=== PATIENT | female | born 1935 | race Caucasian/White ===

== ENCOUNTER 2021-12-26 08:53 | Inpatient (IN) | payer MEDICARE, OTHER ==
[2021-12-26] MEDS ORDERED: ONDANSETRON 4 MG/2 ML VIAL IVP STA (09:04)
--- NOTE | 2021-12-26 09:13 | ED ---
Fall HPI - General Stated Complaint: Fall, hip pain Time Seen by Provider: 12/26/21 08:54 Source: patient, EMS, RN notes reviewed - History of Present Illness Initial Comments: Patient is a 86 year old female, visiting family from [place], presenting to the ER via EMS with a chief complaint of left leg pain. She states she fell while getting into her hotel room shower this morning. Denies LOC or other injuries. She denies numbness or tingling in left leg. Denies blood thinners. She states while still her pain is a 6/10 and while moving it is a 10/10. Per EMS, she was down for about an hour before they were able to get her out of the shower. She received 10mg of morphine prior to arrival. Patient reports nausea with medication. EMS also started her on 2L oxygen due to her saturation being in the low 90s. Patient is not normally on oxygen at home. She denies headache, chest pain, shortness of breath, or abdominal pain. Patient refuses additional pain medications at this time. - Related Data Allergies Allergy/AdvReac Type Severity Reaction Status Date / Time No Known Allergies Allergy Verified 12/26/21 09:11 Review of Systems ROS Statement: Those systems with pertinent positive or pertinent negative responses have been documented in the HPI. ROS Other: All systems not noted in ROS Statement are negative. General Exam General appearance: alert, in no apparent distress Head exam: Present: atraumatic, normocephalic, normal inspection Eye exam: Present: normal appearance, PERRL, EOMI. Absent: scleral icterus, conjunctival injection, periorbital swelling Neck exam: Present: normal inspection. Absent: tenderness, meningismus, lymphadenopathy Respiratory exam: Present: normal lung sounds bilaterally. Absent: respiratory distress, wheezes, rales, rhonchi, stridor Cardiovascular Exam: Present: regular rate, normal rhythm, normal heart sounds. Absent: systolic murmur, diastolic murmur, rubs, gallop, clicks GI/Abdominal exam: Present: soft, normal bowel sounds. Absent: distended, tenderness, guarding, rebound, rigid Extremities exam: Present: full ROM, tenderness (left thigh and hip ), other (left leg externally rotated; positive left leg roll ) Back exam: Present: normal inspection Neurological exam: Present: alert, oriented X3, CN II-XII intact Psychiatric exam: Present: normal affect, normal mood Skin exam: Present: warm, dry, intact, normal color. Absent: rash Course Vital Signs 12/26/21 08:59 Temperature 97.4 F L Pulse Rate 65 Respiratory 18 Rate Blood Pressure 198/110 O2 Sat by Pulse 92 L Oximetry Medical Decision Making - Medical Decision Making X-ray shows evidence of left hip fracture. Patient be admitted for surgery. Disposition Clinical Impression: Fall, Hip fracture, left Disposition: ADMITTED IP TO THIS HOSP Referrals: None,Stated [Primary Care Provider] - 1-2 days Time of Disposition: 09:40
[2021-12-26] MEDS ORDERED: NALOXONE 0.4 MG/ML 1 ML VIAL IV PRN ×2 (10:04→21:12)
[2021-12-26] MEDS ORDERED: HYDROmorphone 0.5 MG/0.5 ML SYRINGE IVP PRN ×4 (10:04→21:12)
[2021-12-26] MEDS ORDERED: SODIUM CHLORIDE 0.9% 1,000 ML IV SCH (10:15)
[2021-12-26] MEDS ORDERED: METOCLOPRAMIDE 5 MG/ML 2 ML VIAL IVP STA (10:27)
--- NOTE | 2021-12-26 10:28 | XR ---
EXAMINATION TYPE: XR Hip LT and AP Pelvis DATE OF EXAM: 12/26/2021 COMPARISON: None HISTORY: Trauma, fall TECHNIQUE: 2 view left hip supplemented with AP pelvis FINDINGS: There is a left femoral neck fracture. Femoral head articulates with the acetabulum. No add itional fractures are evident. Symphysis pubis and sacroiliac joints are normal. IMPRESSION: 1. Fracture of the distal left femoral neck.
--- NOTE | 2021-12-26 10:28 | XR ---
EXAMINATION TYPE: XR chest 1V portable DATE OF EXAM: 12/26/2021 COMPARISON: None INDICATION: Presurgical clearance TECHNIQUE: Single frontal view of the chest is obtained. FINDINGS: The heart size is normal. The pulmonary vasculature is somewhat prominent upper lung moyer. The lungs are clear. There is elevation of the right diaphragm. IMPRESSION: 1. Some mild volume overload may be present. 2. An acute pulmonary process is not otherwise radiographically apparent.
--- NOTE | 2021-12-26 10:29 | P.HPOR ---
History of Present Illness H&P Date: 12/26/21 Chief Complaint: Left femoral neck fracture Patient is 86-year-old female who presented to [facility] emergency room today for evaluation after falling and injuring her left femur. Patient has been in town visiting some family, she is resting in a hotel with her daughter. She attempted to use the restroom this morning when she fell and landed on her left knee and hip. She's been having discomfort in both areas, the hip pain is way worse. She was unable to weight-bear brought to the hospital for further evaluation. On arrival to the hospital, imaging and lab tests were done. Images demonstrated a displaced left femoral neck fracture. I was contacted by the emergency room staff and was able to evaluate the patient at bedside. Patient was resting in her hospital bed, the daughter was present at bedside. She complains of most of the pain in her left hip region. She's having mild knee pain at this time. She has a history of knee replacement that was done many years ago on the left side. She denies any previous surgery to her left hip. She has no other orthopedic complaints this time. She denies any numbness or tingling in the bilateral upper or lower extremities. She denies any loss of bowel or bladder function. She denies any headaches, lightheadedness, chest pain or shortness of breath. Review of Systems Constitutional: Reports as per HPI Past Medical History Past Medical History: Chest Pain / Angina, Diabetes Mellitus, Hypertension, Myocardial Infarction (SD) History of Any Multi-Drug Resistant Organisms: None Reported Past Surgical History: Breast Surgery, Heart Catheterization With Stent, Hysterectomy Additional Past Surgical History / Comment(s): bladder Past Psychological History: No Psychological Hx Reported Smoking Status: Never smoker Past Alcohol Use History: None Reported Past Drug Use History: None Reported Medications and Allergies Allergies Allergy/AdvReac Type Severity Reaction Status Date / Time No Known Allergies Allergy Verified 12/26/21 09:11 Physical Examination Left lower extremity: No obvious open lesions or sores visualized throughout the extremity. No significant soft tissue swelling or areas of erythema. Well-healed incision over the anterior aspect of the knee, there is no effusion Tenderness with palpation of the proximal femur as noted, logroll maneuver reproduces pain. She's has mild tenderness with palpation around the knee. She is nontender to the lower leg, foot or ankle Range of motion is limited to the hip, she is unable to straight leg raise. Range of motion of the knee is also difficult due to pain. Plantar flexion, dorsiflexion, EHL, FHL are intact. Compartments of the upper leg and lower leg. Anterior and posterior are soft and compressible. Calf is soft, no tenderness with palpation. Plantar flexion, dorsiflexion, EHL, FHL are intact Sensory exam to light touch throughout the extremity is intact Dorsalis pedis pulses 2+ Results - Diagnostic results Hip x-ray: report reviewed, image reviewed (X-rays reviewed of the left hip and pelvis. Images demonstrate a left femoral neck fracture. No other acute osseous abnormality is appreciated.) Assessment and Plan Assessment: Displaced left femoral neck fracture Left knee pain, history of left total knee arthroplasty Status post fall from standing Other medical comorbidities Plan: I was able to discuss the case, this including no physical exam findings and imaging studies maintaining Dr. Diana. Patient was admitted under orthopedic care with plan for surgical intervention. We have discussed the surgical options at bedside. We would like to proceed with a direct anterior total hip arthroplasty for the fracture. Patient and family are in good understanding like to proceed. Risks and benefits of the procedure discussed with patient, this including but not excluded blood loss, infection, neurovascular injury, development of blood clots, and adequate healing of bone, possible need for further surgery, etc. They're in good understanding would like to proceed. Obtain consent. Planning for surgery on 12/27/2021 Nothing by mouth diet at this time Gay catheter initiation Nonweightbearing left lower extremity X-rays of the left femur and knee have been ordered for further evaluation Medical recommendations DVT prophylaxis, patient will be started on subcu medication after surgery Further recommendations to follow. Time with Patient: Less than 30
--- NOTE | 2021-12-26 11:26 | XR ---
EXAMINATION TYPE: XR knee limited LT DATE OF EXAM: 12/26/2021 COMPARISON: NONE HISTORY: Pain TECHNIQUE: Two views are submitted. FINDINGS: Postsurgical changes are seen. Faint soft tissue calcifications are noted. Diffuse osteopenia.. Osse ous structures are intact. No acute fracture seen. IMPRESSION: 1. No acute fracture or dislocation.
--- NOTE | 2021-12-26 11:27 | XR ---
EXAMINATION TYPE: XR femur LT DATE OF EXAM: 12/26/2021 COMPARISON: NONE HISTORY: Pain TECHNIQUE: 2 views FINDINGS: There is a displaced fracture of the left femoral neck. Arthropathy of the hip joint and po stsurgical change involving the knee joint. Mild diffuse osteopenia. IMPRESSION: Displaced left femoral neck fracture.
[2021-12-26] MEDS ORDERED: hydrALAZINE HCL 20 MG/ML 1 ML VIAL IVP STA (11:30)
[2021-12-26 11:32] LABS: Basophils % (A) 0 %; Eosinophils # (A) 0.1 k/uL (0-0.7); Eosinophils % (A) 1 %; HCT 39.6 % (34.0-46.0); HGB 13.1 gm/dL (11.4-16.0); Hypochromasia Slight; Lymphocytes # (A) 0.9 k/uL (1.0-4.8); Lymphocytes % (A) 9 %; MCH 29.8 pg (25.0-35.0); MCHC 33.2 g/dL (31.0-37.0); Mean Platelet Volume 10.5; Monocytes # (A) 0.3 k/uL (0-1.0); Monocytes % (A) 3 %; Neutrophils # (A) 8.3 k/uL (1.3-7.7); Neutrophils % (A) 86 %; Platelet Count 140 k/uL (150-450); RDW 14.7 % (11.5-15.5); WBC 9.7 k/uL (3.8-10.6)
[2021-12-26 11:40] LABS: ALT 23 U/L (4-34); AST 32 U/L (14-36); African American GFR (CKD) >90 (>60 ml/min/1.73 sqM); Albumin 4.1 g/dL (3.5-5.0); Alkaline Phosphatase 92 U/L (38-126); Anion Gap 8 mmol/L; Blood Urea Nitrogen 16 mg/dL (7-17); Calcium 8.3 mg/dL (8.4-10.2); Carbon Dioxide 25 mmol/L (22-30); Chloride 105 mmol/L (98-107); Glucose 152 mg/dL (74-99); Non-African American GFR(CKD) 78 (>60 ml/min/1.73 sqM); Potassium 3.4 mmol/L (3.5-5.1); Sodium 138 mmol/L (137-145); Total Protein 6.6 g/dL (6.3-8.2)
[2021-12-26] MEDS ORDERED: ISOSORBIDE DINITRATE 10 MG TAB PO SCH (11:45)
[2021-12-26] MEDS ORDERED: TELMISARTAN 80 MG PO SCH (11:45)
[2021-12-26] MEDS ORDERED: METOPROLOL TARTRATE 25 MG TAB PO SCH (11:45)
[2021-12-26 11:48] LABS: Partial Thromboplastin Time 22.3 sec (22.0-30.0); Prothrombin Time 10.6 sec (9.0-12.0)
[2021-12-26 11:56] LABS: Appearance,Urine Clear (Clear); Bacteria,Urine Few /hpf; Bilirubin,Urine Negative (Negative); Blood,Urine Negative (Negative); Color,Urine Light Yellow; Glucose,Urine (UA) Negative (Negative); Ketones,Urine Negative (Negative); Leukocyte Esterase,Urine Negative (Negative); Mucus,Urine Rare /hpf; Nitrite,Urine Positive (Negative); Protein,Urine 2+ (Negative); RBC,Urine 1 /hpf (0-5); Specific Gravity,Urine 1.009 (1.001-1.035); Squamous Epithelial Cell,Urine <1 /hpf (0-4); Urobilinogen,Urine <2.0 mg/dL (<2.0); WBC,Urine 3 /hpf (0-5)
[2021-12-26] MEDS: hydrALAZINE HCL 25 MG TAB PO SCH ×2 (13:34→17:05)
[2021-12-26] MEDS ORDERED: DEXTROSE 50% SYRINGE 50 ML IVP PRN ×2 (13:41)
[2021-12-26] MEDS ORDERED: POTASSIUM CHLORIDE ER 20 MEQ TAB.ER PO STA (13:43)
--- NOTE | 2021-12-26 13:46 | P.CONS ---
History of Present Illness - Reason for Consult Consult date: 12/26/21 - History of Present Illness This 86-year-old female with PMH of hypertension, hypothyroidism, diabetes mellitus, CAD post stent in 2011 and 2015 he presents the ED after mechanical fall. Patient is somewhat drowsy likely related to pain medication and majority of history is obtained from family. Patient was with her family visiting from [place] when she fell forward prior to using the toilet. Family and patient denies any syncopal episode or head trauma. She did feel lightheaded and nauseous after she stood up from her fall but her daughter believes that is likely pain related. She started experiencing left hip pain, 10/10 in severity which prompted them to call EMS. Patient currently denies any hip pain when s taying still. She denies any lower extremity edema, nausea or vomiting, chest pain, shortness of breath, palpitations, changes in urination or bowel habits. In the ED, she was noted to have a BP of 218/115. She required 2 L nasal cannula to maintain O2 saturation in the mid 90s. Vital signs otherwise stable. CBC showed platelet count 140. Coagulation panel was negative. CMP showed potassium 3.4, glucose of 153, calcium 8.3. Urinalysis was 2+ protein, positive nitrate. X-ray showed fracture of the distal left femoral neck. Chest x-ray showed mild volume overload. EKG showed sinus rhythm with incomplete right bundle-branch block. Orthopedic surgery was consulted in the ED and family was agreeable for surgery. [facility] was consulted for medical management for this patient. Pertinent positives and negatives as discussed in HPI, a complete review of systems was performed and all other systems are negative. General: non toxic, drowsy, appears at stated age Derm: warm, dry Head: atraumatic, normocephalic, symmetric Eyes: EOMI, no lid lag, anicteric sclera Mouth: no lip lesion, mucus membranes moist Cardiovascular: S1S2 reg, faint systolic murmur Lungs: Decreased BS bilateral, no rhonchi, no rales , no accessory muscle use Ext: no gross muscle atrophy, no edema, no contractures Neuro: no focal neuro deficits Psych: Alert, oriented, appropriate affect #Hypertensive urgency #Hypokalemia #Thrombocytopenia #Abnormal UA #CAD post stent in 2011 and 2016 #Diabetes mellitus #Hypothyroidism Patient presents after mechanical fall. X-ray showed fracture of the distal left femoral neck. Patient and family agreeable for surgery. Orthopedic surgery has been consulted and plans for possible surgery today. Patient has a history of CAD post stent placement in 2011 and 2015. She is currently on aspirin, metoprolol and Lipitor. Family denies any exertional chest pain or shortness of breath. Patient has a RCRI of 1 indicating a 6% 30-day risk of , ID or cardiac arrest. Patient has a Brown score of 0.2% risk of ID or cardiac arrest, intraoperatively or up to 30 days postop. She will need better blood pressure control prior to surgery. She did take her morning dose of Imdur, metoprolol and telmisartan. She was given 10 mg of IV hydralazine in the ED. Her blood pressure is currently 180s over 100s. She'll be started on hydralazine 25 mg by mouth 4 times a day. Vital signs will be monitored and medication adjusted if necessary. Potassium will be replaced and rechecked tomorrow. Unknown etiology for thrombocytopenia. Monitor with heparin products. Patient does not have UTI symptoms. No need for antibiotics for now. Continue to monitor. She'll be started on low-dose insulin sliding scale along with Accu-Cheks 4 times a day and hypoglycemic precautions. She'll be started on Synthroid. DVT prophylaxis: SCDs Discussed with: Patient, daughter Anticipated discharge: Depending on clinical course Anticipated discharge place: Home vs [facility] A total of 30 minutes was spent on the care of this complex patient more than 50% of the time was spent in counseling and care coordination. Thank you for this consultation. Please call [facility] with additional questions or concerns. Past Medical History Past Medical History: Chest Pain / Angina, Diabetes Mellitus, Hypertension, Myocardial Infarction (ID) History of Any Multi-Drug Resistant Organisms: None Reported Past Surgical History: Breast Surgery, Heart Catheterization With Stent, Hysterectomy Additional Past Surgical History / Comment(s): bladder Past Psychological History: No Psychological Hx Reported Smoking Status: Never smoker Past Alcohol Use History: None Reported Past Drug Use History: None Reported Medications and Allergies Home Medications Medication Instructions Recorded Confirmed Type Aspirin EC [Ecotrin Low Dose] 81 mg PO DAILY 12/26/21 12/26/21 History Atorvastatin Calcium [Lipitor] 40 mg PO DAILY 12/26/21 12/26/21 History Cholecalciferol [Vitamin D3 (25 50 mcg PO DAILY 12/26/21 12/26/21 History Mcg = 1000 Iu)] Cranberry Fruit Extract [Cranberry] 500 mg PO DAILY 12/26/21 12/26/21 History Isosorbide Dinitrate 30 mg PO DAILY 12/26/21 12/26/21 History Levothyroxine Sodium [Synthroid] 75 mcg PO DAILY 12/26/21 12/26/21 History Magnesium 250 mg PO DAILY 12/26/21 12/26/21 History Metoprolol Tartrate [Lopressor] 25 mg PO BID 12/26/21 12/26/21 History Multivitamins, Thera [Multivitamin 1 tab PO DAILY 12/26/21 12/26/21 History (formulary)] Nitroglycerin Sl Tabs [Nitrostat] 0.4 mg SUBLINGUAL Q5M PRN 12/26/21 12/26/21 History Telmisartan [Micardis] 80 mg PO DAILY 12/26/21 12/26/21 History metFORMIN HCL [Glucophage] 500 mg PO BID 12/26/21 12/26/21 History sitaGLIPtin [Januvia] 50 mg PO DAILY 12/26/21 12/26/21 History Allergies Allergy/AdvReac Type Severity Reaction Status Date / Time No Known Allergies Allergy Verified 12/26/21 09:11 Physical Exam Vitals: Vital Signs Temp Pulse Resp BP Pulse Ox 12/26/21 13:30 87 18 172/96 94 L 12/26/21 13:00 88 18 182/102 94 L 12/26/21 12:32 86 18 187/101 95 12/26/21 12:17 85 18 179/99 94 L 12/26/21 12:00 81 18 191/102 95 12/26/21 11:00 81 18 198/109 95 12/26/21 10:10 78 18 218/115 94 L 12/26/21 08:59 97.4 F L 65 18 198/110 92 L Intake and Output 12/25/21 12/26/21 12/26/21 22:59 06:59 14:59 Other: Weight 75.296 kg Results CBC & Chem 7: 12/26/21 11:21 12/26/21 11:21 Labs: Abnormal Lab Results - Last 24 Hours (Table) 12/26/21 12/26/21 12/26/21 Range/Units 11:21 11:21 11:45 Plt Count 140 L (150-450) k/uL Neutrophils # 8.3 H (1.3-7.7) k/uL Lymphocytes # 0.9 L (1.0-4.8) k/uL Potassium 3.4 L (3.5-5.1) mmol/L Glucose 152 H (74-99) mg/dL Calcium 8.3 L (8.4-10.2) mg/dL Urine Protein 2+ H (Negative) Urine Nitrite Positive H (Negative) Urine Bacteria Few H (None) /hpf Urine Mucus Rare H (None) /hpf
[2021-12-26 16:34] LABS: Glucose,Whole Blood 123 mg/dL (70-110)
[2021-12-26] MEDS: INSULIN ASPART (NovoLOG) 100 UNIT/ML VIAL SQ SCH ×2 (16:46→20:04)
[2021-12-26] MEDS ORDERED: hydrALAZINE HCL 25 MG TAB PO PRN (17:25)
[2021-12-26] MEDS ORDERED: TRANEXAMIC ACID IN NACL,ISO-OS 1,000 MG in SALINE 1 100ML.BAG IVPB PRN (19:00)
[2021-12-26] MEDS ORDERED: TRANEXAMIC ACID IN NACL,ISO-OS 1,000 MG/100 ML BAG IRRIGATION ONE (19:12)
[2021-12-26] MEDS ORDERED: KETAMINE 10 MG/ML 20 ML VIAL ONE (19:51)
[2021-12-26] MEDS ORDERED: PHENYLEPHRINE-0.9% NACL SYG 1,000 MCG/10 ML SYRINGE ONE (19:51)
[2021-12-26] MEDS ORDERED: SODIUM CHLORIDE 0.9% 1,000 ML IV ONE (19:51)
[2021-12-26] MEDS ORDERED: PROPOFOL 10 MG/ML 20 ML VIAL IV ONE (19:51)
[2021-12-26] MEDS ORDERED: MIDAZOLAM 2 MG/2 ML VIAL ONE (19:51)
[2021-12-26] MEDS ORDERED: TRANEXAMIC ACID IN NACL,ISO-OS 1,000 MG/100 ML BAG ONE (19:51)
[2021-12-26] MEDS ORDERED: LIDOCAINE 2% INJ 20 MG/ML (2 ML VIAL) ONE (19:51)
[2021-12-26] MEDS ORDERED: SODIUM CHLORIDE 0.9% 100 ML with ceFAZolin 2,000 MG IV ONE ×2 (20:10)
[2021-12-26] MEDS ORDERED: ceFAZolin 1,000 MG in SODIUM CHLORIDE 0.9% 1,000 ML IRRIGATION ONE (20:15)
[2021-12-26] MEDS ORDERED: LACTATED RINGERS 1,000 ML IV ONE (20:54)
[2021-12-26] MEDS ORDERED: ONDANSETRON 4 MG/2 ML VIAL IVP PRN (21:12)
--- NOTE | 2021-12-26 21:12 | P.OP ---
Date of Procedure: 12/26/21 Preoperative Diagnosis: Displaced left hip femoral neck fracture Postoperative Diagnosis: Displaced left hip femoral neck fracture Procedure(s) Performed: Direct anterior left total hip arthroplasty Implants: 1. Tien [place] 125 standard collar size 12 press-fit femoral stem 2. [place] pinnacle 50 mm press-fit acetabular shell 3. Tien pinnacle neutral polyethylene acetabular liner 32 mm ID 50 mm OD 4. Biolox delta ceramic femoral head +1 32 mm Anesthesia: spinal Surgeon: George Diana Credit Operations Specialist #1: Pedro Silva Estimated Blood Loss (ml): 120 Pathology: other (Femoral head) Condition: stable Disposition: PACU Indications for Procedure: 86-year-old patient was seen with a displaced left hip femoral neck fracture. I discussed direct anterior left total hip arthroplasty. Patient and her family were agreeable, consent was obtained. Operative Findings: See description of procedure Description of Procedure: The patient was taken to the operative suite. Patient underwent a spinal anesthetic by the department of anesthesia. Patient was then transferred to the [place] table. Patient was given preoperative IV antibiotics and TXA. Both lower extremities were placed in standard leg spars. The hip was then prepped and draped in the normal sterile orthopedic fashion. A standard anterior incision was made beginning 3 cm lateral and 1 cm distal to the ASIS extending 10 cm. Dissection was then carried down through the subcutaneous soft tissues down to the fascia overlying the tensor fascia jhonatan. An incision was now made through the fascia. Careful dissection was taken down exposing the tensor fascia jhonatan muscle. A Cobra retractor was now placed along the medial femoral neck and a second one along the lateral femoral neck. The venous circumflex vessels were now identified, cauterized and clipped. We identified the anterior hip capsule. An incision was made through the hip capsule along the lateral border. I encountered hemarthrosis. I performed a partial anterior capsulectomy. Retractors were now placed around the femoral neck itself. I noted a displaced comminuted femoral neck fracture. A femoral neck cut was now made with a s agittal saw. It was completed with an osteotome at the lateral neck area. The femoral head was now removed without difficulty. The extremity was now rotated to 60 of external rotation. It was locked in position. Residual labrum was now debrided out. Serial reaming was performed of the acetabulum while Aravind RUDOLPH assisted holding an anterior retractor for exposure. Once we reached the appropriate size and a trial was position and fit nicely. The appropriate size was now chosen opened and made available. It was introduced into the acetabulum without difficulty. The C-arm/fluoroscopy was now brought into the operative field. We made sure we had a true AP pelvic view. We now under direct C-arm/fluoroscopy introduced into the acetabular component with appropriate version and inclination. I held the cup in appropriate position well Aravind RUDOLPH used a mallet to seat the acetabular component. I noted the component now to be well seated and stable. Acetabular cup introduce her was removed. The C-arm was pulled back. An appropriate liner was introduced and clicked into position. It was felt to be stable. At this point retractors were removed. The extremity was now placed into 140 external rotation with no traction. The leg was now dropped to the ground and adducted. Appropriate retractors were now positioned along the proximal femur. We also placed our fem oral look into position. Additional capsular releasing was performed to gain access to the proximal femur. We now used a box osteotome. A canal finder was now utilized. Serial broaching was now performed with the assistance of Aravind RUDOLPH tapping the broaches down with a mallet while held the broach in appropriate rotation and position. This was done until we reached the appropriate size with good overall rotational stability. Appropriate calcar planing was performed. A trial head/neck was placed into position. The hip was now reduced. The C-arm/fluoroscopy was brought back into the operative field. I obtained and AP pelvis was demonstrated adequate leg length alignment. The trial components appeared adequately sized and positioned. The C- arm/fluoroscopy was pulled back. Retractors were repositioned and the hip was dislocated. The leg was again taken down to the ground and adducted. Appropriate retractors were repositioned as well as the femoral hook. All trial components were removed. The femoral implant was opened along with the femoral head. The femoral implant was introduced on the appropriate handle into our pre-broached area. I held the component position well Aravind RUDOLPH used a mallet to seat the femoral component. The femoral component was now noted to be well seated and stable.. The femoral head was introduced with good positioning and fixation noted. Retractors were now removed. The hip was now reduced. There appeared be good positioning of the hip confirmed on intraoperative fluoroscopy. Spot films were obtained to document this. A second gram of TXA was given. Bipolar cautery had been utilized intermittently through the procedure for hemostasis. The wound was irrigated copiously with pulse lavage mechanical irrigation. The fascia was repaired with Vicryl suture. The subcutaneous soft tissues were repaired in layers with Vicryl suture. The skin was approximated with pernio/Dermabond. Sterile dressings were applied. Patient was then awakened, transferred to a bed and taken to recovery in stable condition. Aravind RUDOLPH assisted with the complex procedure.
--- NOTE | 2021-12-26 22:09 | XR ---
EXAMINATION TYPE: XR Hip Limited LT DATE OF EXAM: 12/26/2021 COMPARISON: NONE HISTORY: Hip surgery TECHNIQUE: 2 views FINDINGS: There is left hip prosthesis. Components appear in anatomic position. 9 seconds of fluorosc opy time was recorded. IMPRESSION: No complicating process seen.
[2021-12-26] MEDS: SODIUM CHLORIDE 0.9% 1,000 ML IV SCH (22:15)
[2021-12-26] MEDS: ONDANSETRON 4 MG/2 ML VIAL IVP PRN (23:39)
[2021-12-26] MEDS: METOPROLOL TARTRATE 25 MG TAB PO SCH (23:40)
[2021-12-27] MEDS: traMADol 50 MG TAB PO PRN (05:17)
[2021-12-27 06:07] LABS: Glucose,Whole Blood 133 mg/dL (70-110)
[2021-12-27] MEDS: INSULIN ASPART (NovoLOG) 100 UNIT/ML VIAL SQ SCH ×4 (06:16→22:24)
[2021-12-27] MEDS: LEVOTHYROXINE 75 MCG TAB PO SCH (06:19)
--- NOTE | 2021-12-27 08:01 | FL ---
EXAMINATION TYPE: FL guidance operating room DATE OF EXAM: 12/26/2021 HISTORY: Fluoroscopy time 9 seconds of fluoroscopy provided. IMPRESSION: 1. Fluoroscopy time.
[2021-12-27 08:23] LABS: African American GFR (CKD) 73 (>60 ml/min/1.73 sqM); Anion Gap 6 mmol/L; Blood Urea Nitrogen 18 mg/dL (7-17); Calcium 7.3 mg/dL (8.4-10.2); Carbon Dioxide 21 mmol/L (22-30); Chloride 109 mmol/L (98-107); Glucose 135 mg/dL (74-99); Non-African American GFR(CKD) 63 (>60 ml/min/1.73 sqM); Potassium 3.9 mmol/L (3.5-5.1); Sodium 136 mmol/L (137-145)
[2021-12-27 08:41] LABS: Basophils # (A) 0.01 X 10*3/uL (0.00-0.10); Basophils % (A) 0.1 %; Eosinophils # (A) 0 X 10*3/uL (0.04-0.35); Eosinophils % (A) 0 %; HCT 33.9 % (37.2-46.3); HGB 10.7 g/dL (12.0-15.0); Immature Grans, Automated 0.5 %; Lymphocytes # (A) 0.79 X 10*3/uL (0.90-5.00); Lymphocytes % (A) 9.4 %; MCH 28.5 pg (27.0-32.0); MCHC 31.6 g/dL (32.0-37.0); MCV 90.2 fL (80.0-97.0); Mean Platelet Volume 12.9 fL (9.5-12.2); Monocytes # (A) 0.52 X 10*3/uL (0.20-1.00); Monocytes % (A) 6.2 %; NRBC Per 100 WBC 0 /100 WBCS (0.0-0.0); Neutrophils # (A) 7.02 X 10*3/uL (1.80-7.70); Neutrophils % (A) 83.8 %; Platelet Count 150 X 10*3/uL (140-440); RBC 3.76 X 10*6/uL (4.10-5.20); RDW 15.8 % (11.5-14.5); WBC 8.38 X 10*3/uL (4.50-10.00)
[2021-12-27] MEDS: SODIUM CHLORIDE 0.9% 1,000 ML IV SCH (09:26)
[2021-12-27] MEDS: LOSARTAN 50 MG TAB PO SCH (09:27)
[2021-12-27] MEDS: ATORVASTATIN 40 MG TAB PO SCH (09:27)
[2021-12-27] MEDS: FAMOTIDINE 20 MG TAB PO SCH (09:27)
[2021-12-27] MEDS: ENOXAPARIN 40 MG/0.4 ML SYRINGE SQ SCH (09:27)
[2021-12-27] MEDS: METOPROLOL TARTRATE 25 MG TAB PO SCH ×2 (09:27→23:10)
[2021-12-27] MEDS: ISOSORBIDE MONONITRATE ER 30 MG TAB.ER.24H PO SCH (09:27)
--- NOTE | 2021-12-27 09:32 | P.PN ---
Subjective Progress Note Date: 12/27/21 Principal diagnosis: Status post left total hip arthroplasty, status post fall with femoral neck fracture Patient was evaluated at bedside, she is resting comfortably. Her pain is controlled, she states it is feeling better since surgery. She has not been ambulating at this time. Urinary catheter remains in place. She denies any headaches, lightheadedness, chest pain shortness of breath Objective - Vital Signs Vital signs: Vital Signs Temp 97.5 F L 12/27/21 00:15 Pulse 82 12/27/21 00:15 Resp 18 12/27/21 00:15 BP 145/81 12/27/21 00:15 Pulse Ox 95 12/27/21 08:43 FiO2 Intake & Output 12/26/21 12/27/21 12/27/21 18:59 06:59 18:59 Intake Total 600 1701 Output Total 1070 Balance 600 631 Weight 75.296 kg Intake: IV 1301 Intake, IV Titration 600 400 Amount Sodium Chloride 0.9% 1, 400 000 ml @ 50 mls/hr IV . Q20H [facility] Rx#:[id number] Sodium Chloride 0.9% 1, 600 000 ml @ 75 mls/hr IV . [id number] [facility] Rx#:[id number] Output: Urine 950 Estimated Blood Loss 120 - Exam Left lower extremity: Incision is clean, dry, and intact. The foam dressing is in good condition. There is minimal soft tissue swelling and ecchymosis surrounding the medial and lateral aspects of the incision. Calf is soft, no tenderness with palpation. Plantar flexion, dorsiflexion, EHL, FHL are intact. Sensory exam to light touch throughout the extremity is intact, dorsal pedis pulses 2+. - Labs CBC & Chem 7: 12/27/21 05:52 12/27/21 05:52 Labs: Abnormal Lab Results - Last 24 Hours (Table) 12/26/21 12/26/21 12/26/21 Range/Units 11:21 11: 11:45 RBC (4.10-5.20) X 10*6/uL Hgb (12.0-15.0) g/dL Hct (37.2-46.3) % MCHC (32.0-37.0) g/dL RDW (11.5-14.5) % Plt Count 140 L (150-450) k/uL MPV (9.5-12.2) fL Neutrophils # 8.3 H (1.3-7.7) k/uL Lymphocytes # 0.9 L (1.0-4.8) k/uL Eosinophils # (0.04-0.35) X 10*3/uL Sodium (137-145) mmol/L Potassium 3.4 L (3.5-5.1) mmol/L Chloride (98-107) mmol/L Carbon Dioxide (22-30) mmol/L BUN (7-17) mg/dL Glucose 152 H (74-99) mg/dL POC Glucose (mg/dL) (70-110) mg/dL Calcium 8.3 L (8.4-10.2) mg/dL Urine Protein 2+ H (Negative) Urine Nitrite Positive H (Negative) Urine Bacteria Few H (None) /hpf Urine Mucus Rare H (None) /hpf 12/26/21 12/27/21 12/27/21 Range/Units 16:31 05:52 05:52 RBC 3.76 L (4.10-5.20) X 10*6/uL Hgb 10.7 L (12.0-15.0) g/dL Hct 33.9 L (37.2-46.3) % MCHC 31.6 L (32.0-37.0) g/dL RDW 15.8 H (11.5-14.5) % Plt Count (150-450) k/uL MPV 12.9 H (9.5-12.2) fL Neutrophils # (1.3-7.7) k/uL Lymphocytes # 0.79 L (1.0-4.8) k/uL Eosinophils # 0 L (0.04-0.35) X 10*3/uL Sodium 136 L (137-145) mmol/L Potassium (3.5-5.1) mmol/L Chloride 109 H (98-107) mmol/L Carbon Dioxide 21 L (22-30) mmol/L BUN 18 H (7-17) mg/dL Glucose 135 H (74-99) mg/dL POC Glucose (mg/dL) 123 H (70-110) mg/dL Calcium 7.3 L (8.4-10.2) mg/dL Urine Protein (Negative) Urine Nitrite (Negative) Urine Bacteria (None) /hpf Urine Mucus (None) /hpf 12/27/21 Range/Units 06:05 RBC (4.10-5.20) X 10*6/uL Hgb (12.0-15.0) g/dL Hct (37.2-46.3) % MCHC (32.0-37.0) g/dL RDW (11.5-14.5) % Plt Count (150-450) k/uL MPV (9.5-12.2) fL Neutrophils # (1.3-7.7) k/uL Lymphocytes # (1.0-4.8) k/uL Eosinophils # (0.04-0.35) X 10*3/uL Sodium (137-145) mmol/L Potassium (3.5-5.1) mmol/L Chloride (98-107) mmol/L Carbon Dioxide (22-30) mmol/L BUN (7-17) mg/dL Glucose (74-99) mg/dL POC Glucose (mg/dL) 133 H (70-110) mg/dL Calcium (8.4-10.2) mg/dL Urine Protein (Negative) Urine Nitrite (Negative) Urine Bacteria (None) /hpf Urine Mucus (None) /hpf Assessment and Plan Assessment: Postoperative day #1 status post direct anterior left total hip arthroplasty Acute blood loss anemia, expected surgical outcome History of recent fall with left femoral neck fracture Other medical comorbidities Plan: Pain control, continue current medications, avoid high dose oral pain medication due to nausea and vomiting DVT prophylaxis, continue subcu medication during hospital stay Encourage incentive spirometer Ferrous sulfate 325 mg twice a day for anemia PT/OT evaluation, weight-bear as tolerated with walker Medical recommendations Discharge planning: Patient will likely require subacute rehab, we'll discuss his case management possibilities for discharge. Time with Patient: Less than 30
[2021-12-27 11:07] LABS: Glucose,Whole Blood 153 mg/dL (70-110)
--- NOTE | 2021-12-27 15:04 | P.PN ---
Subjective Progress Note Date: 12/27/21 This 86-year-old female with PMH of hypertension, hypothyroidism, diabetes mellitus, CAD post stent in 2011 and 2016 he presents the ED after mechanical fall. In the ED, she was noted to have a BP of 218/115. She required 2 L nasal cannula to maintain O2 saturation in the mid 90s. Vital signs otherwise stable. CBC showed platelet count 140. Coagulation panel was negative. CMP showed potassium 3.4, glucose of 153, calcium 8.3. Urinalysis was 2+ protein, positive nitrate. X-ray showed fracture of the distal left femoral neck. Chest x-ray showed mild volume overload. EKG showed sinus rhythm with incomplete right bundle-branch block. Orthopedic surgery was consulted in the ED and family was agreeable for surgery. [facility] was consulted for medical management for this patient. Patient was seen and examined. She is POD 1 direct anterior L total hip arthropasty. Patient reports well controlled pain in her left hip. She is seen sitting in a chair. She would like to go back to bed. Mentation significantly improved. BP 145/81. General: non toxic, drowsy, appears at stated age Derm: warm, dry Head: atraumatic, normocephalic, symmetric Eyes: EOMI, no lid lag, anicteric sclera Mouth: no lip lesion, mucus membranes moist Cardiovascular: S1S2 reg, faint systolic murmur Lungs: Decreased BS bilateral, no rhonchi, no rales , no accessory muscle use Ext: no gross muscle atrophy, no edema, no contractures Neuro: no focal neuro deficits Psych: Alert, oriented, appropriate affect #Acute blood loss anemia #Hypertensive urgency #Thrombocytopenia #Abnormal UA #CAD post stent in 2011 and 2016 #Diabetes mellitus #Hypothyroidism Hg 10.7. Expected result of surgery. No active signs of bleeding. Continue to monitor. Orthopedic surgery on board. She is POD 1 direct anterior L total hip arthropasty Patient has a history of CAD post stent placement in 2011 and 2016. She is cur rently on aspirin, metoprolol and Lipitor. Family denies any exertional chest pain or shortness of breath. Patient has a RCRI of 1 indicating a 6% 30-day risk of , [place] or cardiac arrest. Patient has a Brown score of 0.2% risk of [place] or cardiac arrest, intraoperatively or up to 30 days postop. Her NSQIP risk is 4.9% of serious complication (3.3% average), 0.5% of cardiac complication (0.2% average), 0.2% (0.1% average), 38.2% need for SNF (8.4% average). Continue Imdur, metoprolol and telmisartan. Continue hydralazine 25 mg by mouth 4 times a day PRN. Vital signs will be monitored and medication adjusted if necessary. Unknown etiology for thrombocytopenia. Monitor with heparin products. Patient does not have UTI symptoms. No need for antibiotics for now. Continue to monitor. She'll be started on low-dose insulin sliding scale along with Accu-Cheks 4 times a day and hypoglycemic precautions. She'll be started on Synthroid. Plans for SNF. Case management on board. Medically stable. Objective - Vital Signs Vital signs: Vital Signs Temp 97.5 F L 12/27/21 00:15 Pulse 82 12/27/21 00:15 Resp 18 12/27/21 00:15 BP 145/81 12/27/21 00:15 Pulse Ox 95 12/27/21 08:43 FiO2 Intake & Output 12/26/21 12/27/21 12/27/21 18:59 06:59 18:59 Intake Total 600 1701 400 Output Total 1070 Balance 600 631 400 Weight 75.296 kg Intake: IV 1301 Intake, IV Titration 600 400 400 Amount Sodium Chloride 0.9% 1, 400 400 000 ml @ 50 mls/hr IV . Q20H [facility] Rx#:[id number] Sodium Chloride 0.9% 1, 600 000 ml @ 75 mls/hr IV . [id number] [facility] Rx#:[id number] Output: Urine 950 Estimated Blood Loss 120 Other: Voiding Method Indwelling Catheter - Labs CBC & Chem 7: 12/27/21 05:52 12/27/21 05:52 Labs: Abnormal Lab Results - Last 24 Hours (Table) 12/26/21 12/27/21 12/27/21 Range/Units 16:31 05:52 05:52 RBC 3.76 L (4.10-5.20) X 10*6/uL Hgb 10.7 L (12.0-15.0) g/dL Hct 33.9 L (37.2-46.3) % MCHC 31.6 L (32.0-37.0) g/dL RDW 15.8 H (11.5-14.5) % MPV 12.9 H (9.5-12.2) fL Lymphocytes # 0.79 L (0.90-5.00) X 10*3/uL Eosinophils # 0 L (0.04-0.35) X 10*3/uL Sodium 136 L (137-145) mmol/L Chloride 109 H (98-107) mmol/L Carbon Dioxide 21 L (22-30) mmol/L BUN 18 H (7-17) mg/dL Glucose 135 H (74-99) mg/dL POC Glucose (mg/dL) 123 H (70-110) mg/dL Calcium 7.3 L (8.4-10.2) mg/dL 12/27/21 12/27/21 Range/Units 06:05 11:06 RBC (4.10-5.20) X 10*6/uL Hgb (12.0-15.0) g/dL Hct (37.2-46.3) % MCHC (32.0-37.0) g/dL RDW (11.5-14.5) % MPV (9.5-12.2) fL Lymphocytes # (0.90-5.00) X 10*3/uL Eosinophils # (0.04-0.35) X 10*3/uL Sodium (137-145) mmol/L Chloride (98-107) mmol/L Carbon Dioxide (22-30) mmol/L BUN (7-17) mg/dL Glucose (74-99) mg/dL POC Glucose (mg/dL) 133 H 153 H (70-110) mg/dL Calcium (8.4-10.2) mg/dL
[2021-12-27 16:32] LABS: Glucose,Whole Blood 158 mg/dL (70-110)
[2021-12-27] MEDS: FERROUS SULFATE 325 MG TAB PO SCH (17:36)
[2021-12-27 20:30] LABS: Glucose,Whole Blood 146 mg/dL (70-110)
[2021-12-27] MEDS: SENNOSIDES-DOCUSATE SODIUM 1 EACH TAB PO SCH (23:09)
[2021-12-28 06:26] LABS: Glucose,Whole Blood 119 mg/dL (70-110)
[2021-12-28] MEDS: INSULIN ASPART (NovoLOG) 100 UNIT/ML VIAL SQ SCH ×4 (06:28→20:42)
[2021-12-28 07:31] LABS: African American GFR (CKD) 56 (>60 ml/min/1.73 sqM); Anion Gap 4 mmol/L; Blood Urea Nitrogen 24 mg/dL (7-17); Calcium 7.3 mg/dL (8.4-10.2); Carbon Dioxide 22 mmol/L (22-30); Chloride 109 mmol/L (98-107); Glucose 107 mg/dL (74-99); Non-African American GFR(CKD) 49 (>60 ml/min/1.73 sqM); Sodium 135 mmol/L (137-145)
[2021-12-28 07:34] LABS: Potassium 4.3 mmol/L (3.5-5.1)
[2021-12-28 08:00] LABS: HCT 30.4 % (34.0-46.0); MCH 29.4 pg (25.0-35.0); MCHC 33.1 g/dL (31.0-37.0); MCV 88.7 fL (80.0-100.0); Mean Platelet Volume 13.3; RBC 3.43 m/uL (3.80-5.40); RDW 15.1 % (11.5-15.5); WBC 7.4 k/uL (3.8-10.6)
[2021-12-28] MEDS: FAMOTIDINE 20 MG TAB PO SCH (08:01)
[2021-12-28] MEDS: ATORVASTATIN 40 MG TAB PO SCH (08:01)
[2021-12-28 08:02] LABS: HGB 10.1 gm/dL (11.4-16.0)
[2021-12-28] MEDS: FERROUS SULFATE 325 MG TAB PO SCH ×2 (08:02→17:06)
[2021-12-28] MEDS: ISOSORBIDE MONONITRATE ER 30 MG TAB.ER.24H PO SCH (08:02)
[2021-12-28] MEDS: LEVOTHYROXINE 75 MCG TAB PO SCH (08:02)
[2021-12-28] MEDS: ENOXAPARIN 40 MG/0.4 ML SYRINGE SQ SCH (08:02)
[2021-12-28] MEDS: METOPROLOL TARTRATE 25 MG TAB PO SCH ×2 (08:02→21:33)
[2021-12-28] MEDS: LOSARTAN 50 MG TAB PO SCH (08:02)
[2021-12-28] MEDS: traMADol 50 MG TAB PO PRN ×2 (08:38→15:46)
[2021-12-28 09:02] LABS: Large Platelets Present; Platelet Count 123 k/uL (150-450)
[2021-12-28 11:37] LABS: Glucose,Whole Blood 125 mg/dL (70-110)
--- NOTE | 2021-12-28 12:48 | P.PN ---
Subjective Progress Note Date: 12/28/21 This 86-year-old female with PMH of hypertension, hypothyroidism, diabetes mellitus, CAD post stent in 2011 and 2016 he presents the ED after mechanical fall. In the ED, she was noted to have a BP of 218/115. She required 2 L nasal cannula to maintain O2 saturation in the mid 90s. Vital signs otherwise stable. CBC showed platelet count 140. Coagulation panel was negative. CMP showed potassium 3.4, glucose of 153, calcium 8.3. Urinalysis was 2+ protein, positive nitrate. X-ray showed fracture of the distal left femoral neck. Chest x-ray showed mild volume overload. EKG showed sinus rhythm with incomplete right bundle-branch block. Orthopedic surgery was consulted in the ED and family was agreeable for surgery. [facility] was consulted for medical management for this patient. Patient was seen and examined. She is POD 2 direct anterior L total hip arthropasty. Patient reports well controlled pain in her left hip. She is seen sitting in a chair. She would like to go back to bed. Mentation significantly improved. BP 145/81. General: non toxic, drowsy, appears at stated age Derm: warm, dry Head: atraumatic, normocephalic, symmetric Eyes: EOMI, no lid lag, anicteric sclera Mouth: no lip lesion, mucus membranes moist Cardiovascular: S1S2 reg, faint systolic murmur Lungs: Decreased BS bilateral, no rhonchi, no rales , no accessory muscle use Ext: no gross muscle atrophy, no edema, no contractures Neuro: no focal neuro deficits Psych: Alert, oriented, appropriate affect #Acute blood loss anemia #TIM #Hypertensive urgency #Thrombocytopenia #Abnormal UA #CAD post stent in 2011 and 2016 #Diabetes mellitus #Hypothyroidism Hg 10.1. Expected result of surgery. No active signs of bleeding. Continue to monitor. Patient encouraged hydration by mouth. Discontinue Losartan. Avoid nephrotoxins. Repeat BMP tomorrow morning. Orthopedic surgery on board. She is POD 2 direct anterior L total hip arthropasty Patient has a history of CAD post stent placement in 2011 and 2016. She is currently on aspirin, metoprolol and Lipitor. Family denies any exertional chest pain or shortness of breath. Patient has a RCRI of 1 indicating a 6% 30-day risk of , [place] or cardiac arrest. Patient has a Brown score of 0.2% risk of [place] or cardiac arrest, intraoperatively or up to 30 days postop. Her NSQIP risk is 4.9% of serious complication (3.3% average), 0.5% of cardiac complication (0.2% average), 0.2% (0.1% average), 38.2% need for SNF (8.4% average). Continue Imdur, metoprolol. Continue hydralazine 25 mg by mouth 4 times a day PRN. Vital signs will be monitored and medication adjusted if necessary. Unknown etiology for thrombocytopenia. Monitor with heparin products. Patient does not have UTI symptoms. No need for antibiotics for now. Continue to monitor. She'll be started on low-dose insulin sliding scale along with Accu-Cheks 4 times a day and hypoglycemic precautions. She'll be started on Synthroid. Plans for SNF. Case management on board. Medically stable. Objective - Vital Signs Vital signs: Vital Signs Temp 98.9 F 12/28/21 09:01 Pulse 77 12/28/21 09:01 Resp 15 12/28/21 09:01 BP 145/81 12/28/21 09:01 Pulse Ox 92 L 12/28/21 09:01 FiO2 Intake & Output 12/27/21 12/28/21 12/28/21 18:59 06:59 18:59 Intake Total 400 Output Total 600 Balance 400 -600 Intake: Intake, IV Titration 400 Amount Sodium Chloride 0.9% 1, 400 000 ml @ 50 mls/hr IV . Q20H [facility] Rx#:[id number] Output: Urine 600 Other: Voiding Method Indwelling Catheter Indwelling Catheter # Voids 1 # Bowel Movements 1 - Labs CBC & Chem 7: 12/28/21 06:18 12/28/21 06:18 Labs: Abnormal Lab Results - Last 24 Hours (Table) 12/27/21 12/27/21 12/28/21 Range/Units 16:31 20:29 06:18 RBC 3.43 L (3.80-5.40) m/uL Hgb 10.1 L D (11.4-16.0) gm/dL Hct 30.4 L (34.0-46.0) % Plt Count 123 L (150-450) k/uL Sodium (137-145) mmol/L Chloride (98-107) mmol/L BUN (7-17) mg/dL Creatinine (0.52-1.04) mg/dL Glucose (74-99) mg/dL POC Glucose (mg/dL) 158 H 146 H (70-110) mg/dL Calcium (8.4-10.2) mg/dL 12/28/21 12/28/21 12/28/21 Range/Units 06:18 06:24 11:36 RBC (3.80-5.40) m/uL Hgb (11.4-16.0) gm/dL Hct (34.0-46.0) % Plt Count (150-450) k/uL Sodium 135 L (137-145) mmol/L Chloride 109 H (98-107) mmol/L BUN 24 H (7-17) mg/dL Creatinine 1.05 H (0.52-1.04) mg/dL Glucose 107 H (74-99) mg/dL POC Glucose (mg/dL) 119 H 125 H (70-110) mg/dL Calcium 7.3 L (8.4-10.2) mg/dL
--- NOTE | 2021-12-28 13:56 | P.PN ---
Subjective Progress Note Date: 12/28/21 Principal diagnosis: Status post left total hip arthroplasty, status post fall with femoral neck fracture Patient was evaluated at bedside, she is resting comfortably. Family is present at bedside today. She appears more comfortable today. She denies any headaches, lightheadedness, chest pain shortness of breath Objective - Vital Signs Vital signs: Vital Signs Temp 98.9 F 12/28/21 09:01 Pulse 77 12/28/21 09:01 Resp 15 12/28/21 09:01 BP 145/81 12/28/21 09:01 Pulse Ox 92 L 12/28/21 09:01 FiO2 Intake & Output 12/27/21 12/28/21 12/28/21 18:59 06:59 18:59 Intake Total 400 Output Total 600 Balance 400 -600 Intake: Intake, IV Titration 400 Amount Sodium Chloride 0.9% 1, 400 000 ml @ 50 mls/hr IV . Q20H [facility] Rx#:[id number] Output: Urine 600 Other: Voiding Method Indwelling Catheter Indwelling Catheter # Voids 1 # Bowel Movements 1 - Exam Left lower extremity: Incision is clean, dry, and intact. The foam dressing is in good condition. There is minimal soft tissue swelling and ecchymosis surrounding the medial and lateral aspects of the incision. Calf is soft, no tenderness with palpation. Plantar flexion, dorsiflexion, EHL, FHL are intact. Sensory exam to light touch throughout the extremity is intact, dorsal pedis pulses 2+. - Labs CBC & Chem 7: 12/28/21 06:18 12/28/21 06:18 Labs: Abnormal Lab Results - Last 24 Hours (Table) 12/27/21 12/27/21 12/28/21 Range/Units 16:31 20:29 06:18 RBC 3.43 L (3.80-5.40) m/uL Hgb 10.1 L D (11.4-16.0) gm/dL Hct 30.4 L (34.0-46.0) % Plt Count 123 L (150-450) k/uL Sodium (137-145) mmol/L Chloride (98-107) mmol/L BUN (7-17) mg/dL Creatinine (0.52-1.04) mg/dL Glucose (74-99) mg/dL POC Glucose (mg/dL) 158 H 146 H (70-110) mg/dL Calcium (8.4-10.2) mg/dL 12/28/21 12/28/21 12/28/21 Range/Units 06:18 06:24 11:36 RBC (3.80-5.40) m/uL Hgb (11.4-16.0) gm/dL Hct (34.0-46.0) % Plt Count (150-450) k/uL Sodium 135 L (137-145) mmol/L Chloride 109 H (98-107) mmol/L BUN 24 H (7-17) mg/dL Creatinine 1.05 H (0.52-1.04) mg/dL Glucose 107 H (74-99) mg/dL POC Glucose (mg/dL) 119 H 125 H (70-110) mg/dL Calcium 7.3 L (8.4-10.2) mg/dL Assessment and Plan Assessment: Postoperative day #2 status post direct anterior left total hip arthroplasty Acute blood loss anemia, expected surgical outcome History of recent fall with left femoral neck fracture Other medical comorbidities Plan: Pain control, continue current medications, avoid high dose oral pain medication due to nausea and vomiting DVT prophylaxis, continue subcu medication during hospital stay Encourage incentive spirometer Ferrous sulfate 325 mg twice a day for anemia PT/OT evaluation, weight-bear as tolerated with walker Medical recommendations Discharge planning: Likely discharge to rehab on 12/30/2021 Time with Patient: Less than 30
[2021-12-28] MEDS: SODIUM CHLORIDE 0.9% 1,000 ML IV SCH (14:20)
[2021-12-28 16:13] LABS: Glucose,Whole Blood 130 mg/dL (70-110)
[2021-12-28 20:09] LABS: Glucose,Whole Blood 136 mg/dL (70-110)
[2021-12-28] MEDS: SENNOSIDES-DOCUSATE SODIUM 1 EACH TAB PO SCH (21:32)
[2021-12-29 06:10] LABS: Glucose,Whole Blood 118 mg/dL (70-110)
[2021-12-29] MEDS: INSULIN ASPART (NovoLOG) 100 UNIT/ML VIAL SQ SCH ×4 (06:39→21:00)
[2021-12-29] MEDS: FAMOTIDINE 20 MG TAB PO SCH (08:13)
[2021-12-29] MEDS: ISOSORBIDE MONONITRATE ER 30 MG TAB.ER.24H PO SCH (08:13)
[2021-12-29] MEDS: METOPROLOL TARTRATE 25 MG TAB PO SCH ×2 (08:13→21:22)
[2021-12-29] MEDS: FERROUS SULFATE 325 MG TAB PO SCH ×2 (08:13→17:12)
[2021-12-29] MEDS: ENOXAPARIN 40 MG/0.4 ML SYRINGE SQ SCH (08:13)
[2021-12-29] MEDS: ATORVASTATIN 40 MG TAB PO SCH (08:13)
[2021-12-29] MEDS: LEVOTHYROXINE 75 MCG TAB PO SCH (08:13)
[2021-12-29 09:29] LABS: Basophils # (A) 0.01 X 10*3/uL (0.00-0.10); Basophils % (A) 0.2 %; Eosinophils # (A) 0.05 X 10*3/uL (0.04-0.35); Eosinophils % (A) 0.9 %; HCT 28.9 % (37.2-46.3); Immature Grans, Automated 0.3 %; Lymphocytes % (A) 17.5 %; MCH 28.2 pg (27.0-32.0); MCHC 31.1 g/dL (32.0-37.0); MCV 90.6 fL (80.0-97.0); Mean Platelet Volume 12.8 fL (9.5-12.2); Monocytes # (A) 0.58 X 10*3/uL (0.20-1.00); Monocytes % (A) 10.1 %; NRBC Per 100 WBC 0 /100 WBCS (0.0-0.0); Neutrophils # (A) 4.06 X 10*3/uL (1.80-7.70); Platelet Count 125 X 10*3/uL (140-440); RBC 3.19 X 10*6/uL (4.10-5.20); RDW 15.9 % (11.5-14.5); WBC 5.72 X 10*3/uL (4.50-10.00)
--- NOTE | 2021-12-29 10:07 | P.PN ---
Subjective Progress Note Date: 12/29/21 This 86-year-old female with PMH of hypertension, hypothyroidism, diabetes mellitus, CAD post stent in 2011 and 2016 he presents the ED after mechanical fall. In the ED, she was noted to have a BP of 218/115. She required 2 L nasal cannula to maintain O2 saturation in the mid 90s. Vital signs otherwise stable. CBC showed platelet count 140. Coagulation panel was negative. CMP showed potassium 3.4, glucose of 153, calcium 8.3. Urinalysis was 2+ protein, positive nitrate. X-ray showed fracture of the distal left femoral neck. Chest x-ray showed mild volume overload. EKG showed sinus rhythm with incomplete right bundle-branch block. Orthopedic surgery was consulted in the ED and family was agreeable for surgery. [facility] was consulted for medical management for this patient. Patient was seen and examined. She is POD 3 direct anterior L total hip arthropasty. Patient reports well controlled pain in her left hip. She complains of burning type sensation just above her left knee. BP 159/89 General: non toxic, no distress, appears at stated age Derm: warm, dry Head: atraumatic, normocephalic, symmetric Eyes: EOMI, no lid lag, anicteric sclera Mouth: no lip lesion, mucus membranes moist Cardiovascular: S1S2 reg, faint systolic murmur Lungs: Decreased BS bilateral, no rhonchi, no rales , no accessory muscle use Ext: no gross muscle atrophy, no edema, no contractures Neuro: no focal neuro deficits Psych: Alert, oriented, appropriate affect #Acute blood loss anemia #TIM #Hypertensive urgency #Thrombocytopenia #Abnormal UA #CAD post stent in 2011 and 2016 #Diabetes mellitus #Hypothyroidism Hg 9. Expected result of surgery. No active signs of bleeding. Continue to monitor. Patient encouraged hydration by mouth. Discontinue Losartan. Avoid nephrotoxins. Repeat BMP tomorrow morning. Orthopedic surgery on board. She is POD 3 direct anterior L total hip arthropas ty Patient has a history of CAD post stent placement in 2011 and 2015. She is currently on aspirin, metoprolol and Lipitor. Family denies any exertional chest pain or shortness of breath. Patient has a RCRI of 1 indicating a 6% 30-day risk of , [place] or cardiac arrest. Patient has a Brown score of 0.2% risk of [place] or cardiac arrest, intraoperatively or up to 30 days postop. Her NSQIP risk is 4.9% of serious complication (3.3% average), 0.5% of cardiac complication (0.2% average), 0.2% (0.1% average), 38.2% need for SNF (8.4% average). Continue Imdur, metoprolol. Continue hydralazine 25 mg by mouth 4 times a day PRN. Vital signs will be monitored and medication adjusted if necessary. Unknown etiology for thrombocytopenia. Monitor with heparin products. Patient does not have UTI symptoms. No need for antibiotics for now. Continue to monitor. She'll be started on low-dose insulin sliding scale along with Accu-Cheks 4 times a day and hypoglycemic precautions. She'll be started on Synthroid. Plans for SNF. Case management on board. Medically stable. Objective - Vital Signs Vital signs: Vital Signs Temp 97.9 F 12/29/21 00:46 Pulse 85 12/29/21 00:46 Resp 18 12/29/21 00:46 BP 159/89 12/29/21 00:46 Pulse Ox 90 L 12/29/21 00:46 FiO2 Intake & Output 12/28/21 12/29/21 12/29/21 18:59 06:59 18:59 Other: # Voids 2 2 # Bowel Movements 1 - Labs CBC & Chem 7: 12/29/21 04:20 12/28/21 06:18 Labs: Abnormal Lab Results - Last 24 Hours (Table) 12/28/21 12/28/21 12/28/21 Range/Units 11:36 16:11 20:07 RBC (4.10-5.20) X 10*6/uL Hgb (12.0-15.0) g/dL Hct (37.2-46.3) % MCHC (32.0-37.0) g/dL RDW (11.5-14.5) % Plt Count (140-440) X 10*3/uL MPV (9.5-12.2) fL POC Glucose (mg/dL) 125 H 130 H 136 H (70-110) mg/dL 12/29/21 12/29/21 Range/Units 04:20 06:08 RBC 3.19 L (4.10-5.20) X 10*6/uL Hgb 9.0 L (12.0-15.0) g/dL Hct 28.9 L (37.2-46.3) % MCHC 31.1 L (32.0-37.0) g/dL RDW 15.9 H (11.5-14.5) % Plt Count 125 L (140-440) X 10*3/uL MPV 12.8 H (9.5-12.2) fL POC Glucose (mg/dL) 118 H (70-110) mg/dL
[2021-12-29 11:24] LABS: Glucose,Whole Blood 134 mg/dL (70-110)
[2021-12-29] MEDS: traMADol 50 MG TAB PO PRN (11:26)
[2021-12-29] MEDS: SODIUM CHLORIDE 0.9% 1,000 ML IV SCH ×2 (12:34→21:22)
--- NOTE | 2021-12-29 13:27 | P.PN ---
Subjective Progress Note Date: 12/29/21 Principal diagnosis: Status post left total hip arthroplasty, status post fall with femoral neck fracture Patient was evaluated at bedside, she is resting comfortably. Family is present at bedside today. Patient has complained over the last few days above burning sensation on the lateral leg. She is continues to have difficulty with her left knee. Patient was having significant difficulty with the left knee prior to the surgery. She denies any headaches, lightheadedness, chest pain shortness of breath Objective - Vital Signs Vital signs: Vital Signs Temp 98.5 F 12/29/21 08:00 Pulse 90 12/29/21 08:00 Resp 18 12/29/21 00:46 BP 167/80 12/29/21 08:00 Pulse Ox 93 L 12/29/21 08:00 FiO2 Intake & Output 12/28/21 12/29/21 12/29/21 18:59 06:59 18:59 Other: # Voids 2 2 2 # Bowel Movements 1 1 - Exam Left lower extremity: Incision is clean, dry, and intact. The foam dressing is in good condition. There is minimal soft tissue swelling and ecchymosis surrounding the medial and lateral aspects of the incision. Calf is soft, no tenderness with palpation. Palpation surrounding the knee, I am unable to appreciate her quadriceps muscle tone. She does have a very difficult time with extension and flexion of the kne e, I feel this is overall weakness from her surgery to the left lower extremity. No obvious instability with varus and valgus stress of the knee. Plantar flexion, dorsiflexion, EHL, FHL are intact. Sensory exam to light touch throughout the extremity is intact, dorsal pedis pulses 2+. - Labs CBC & Chem 7: 12/29/21 04:20 12/28/21 06:18 Labs: Abnormal Lab Results - Last 24 Hours (Table) 12/28/21 12/28/21 12/29/21 Range/Units 16:11 20:07 04:20 RBC 3.19 L (4.10-5.20) X 10*6/uL Hgb 9.0 L (12.0-15.0) g/dL Hct 28.9 L (37.2-46.3) % MCHC 31.1 L (32.0-37.0) g/dL RDW 15.9 H (11.5-14.5) % Plt Count 125 L (140-440) X 10*3/uL MPV 12.8 H (9.5-12.2) fL POC Glucose (mg/dL) 130 H 136 H (70-110) mg/dL 12/29/21 12/29/21 Range/Units 06:08 11:23 RBC (4.10-5.20) X 10*6/uL Hgb (12.0-15.0) g/dL Hct (37.2-46.3) % MCHC (32.0-37.0) g/dL RDW (11.5-14.5) % Plt Count (140-440) X 10*3/uL MPV (9.5-12.2) fL POC Glucose (mg/dL) 118 H 134 H (70-110) mg/dL Assessment and Plan Assessment: Postoperative day #3 status post direct anterior left total hip arthroplasty Acute blood loss anemia, expected surgical outcome History of recent fall with left femoral neck fracture Other medical comorbidities Plan: Pain control, continue current medications, avoid high dose oral pain medication due to nausea and vomiting DVT prophylaxis, continue subcu medication during hospital stay Encourage incentive spirometer Ferrous sulfate 325 mg twice a day for anemia PT/OT evaluation, weight-bear as tolerated with walker Medical recommendations At a long discussion with patient and family today regarding her overall activity level. Patient needs to be out of bed at all meals. She continues to have to try her very best with weight-bear as tolerated. Discharge planning: Likely discharge to rehab on 12/30/2021 Time with Patient: Less than 30
[2021-12-29] MEDS: ONDANSETRON 4 MG/2 ML VIAL IVP PRN (15:53)
[2021-12-29 16:02] LABS: Glucose,Whole Blood 108 mg/dL (70-110)
[2021-12-29 20:58] LABS: Glucose,Whole Blood 133 mg/dL (70-110)
[2021-12-29] MEDS: SENNOSIDES-DOCUSATE SODIUM 1 EACH TAB PO SCH (21:11)
[2021-12-29] MEDS ORDERED: ACETAMINOPHEN TAB 500 MG TAB PO PRN (22:01)
[2021-12-30 06:06] LABS: Glucose,Whole Blood 134 mg/dL (70-110)
[2021-12-30] MEDS: INSULIN ASPART (NovoLOG) 100 UNIT/ML VIAL SQ SCH ×2 (06:19→12:53)
[2021-12-30] MEDS: FERROUS SULFATE 325 MG TAB PO SCH (06:30)
[2021-12-30] MEDS: LEVOTHYROXINE 75 MCG TAB PO SCH (06:30)
[2021-12-30 08:02] VITALS: BP 173/89; PULSE 78; RESP 16; TEMP 98
[2021-12-30] MEDS: METOPROLOL TARTRATE 25 MG TAB PO SCH (10:16)
[2021-12-30] MEDS: ISOSORBIDE MONONITRATE ER 30 MG TAB.ER.24H PO SCH (10:16)
[2021-12-30] MEDS: ATORVASTATIN 40 MG TAB PO SCH (10:16)
[2021-12-30] MEDS: FAMOTIDINE 20 MG TAB PO SCH (10:16)
[2021-12-30] MEDS: ENOXAPARIN 40 MG/0.4 ML SYRINGE SQ SCH (10:16)
[2021-12-30 10:21] LABS: HCT 29.8 % (37.2-46.3); HGB 9.4 g/dL (12.0-15.0); MCH 28.7 pg (27.0-32.0); MCHC 31.5 g/dL (32.0-37.0); MCV 91.1 fL (80.0-97.0); Mean Platelet Volume 12.6 fL (9.5-12.2); NRBC Per 100 WBC 0 /100 WBCS (0.0-0.0); Platelet Count 161 X 10*3/uL (140-440); RBC 3.27 X 10*6/uL (4.10-5.20); RDW 15.6 % (11.5-14.5); WBC 5.23 X 10*3/uL (4.50-10.00)
[2021-12-30 10:44] LABS: African American GFR (CKD) 77.9 (60.0-200.0); Anion Gap 8.5 mmol/L (10.00-18.00); BUN/Creat Ratio 15.38 Ratio (12.00-20.00); Blood Urea Nitrogen 12.3 mg/dL (9.0-27.0); Calcium 8.4 mg/dL (8.7-10.3); Carbon Dioxide 25.5 mmol/L (20.0-27.5); Non-African American GFR(CKD) 67.2 (60.0-200.0)
[2021-12-30] MEDS: traMADol 50 MG TAB PO PRN (10:50)
[2021-12-30 11:39] LABS: Glucose,Whole Blood 149 mg/dL (70-110)
[2021-12-30] MEDS ORDERED: GABAPENTIN 100 MG CAP PO SCH (11:45)
--- NOTE | 2021-12-30 11:47 | P.PN ---
Subjective Progress Note Date: 12/30/21 Hospital course: Patient is a very pleasant 86-year-old female with a past medical history of CAD status post stents, hypertension, hyperlipidemia, hypothyroidism, and type II [id number] diabetes mellitus. She presented to the emergency department on 12/26/21 status post mechanical fall. Patient was found to have a displaced left femoral neck fracture and was admitted under the therapeutic surgery team. Initially upon arrival to the emergency department patient was a lso found to be in hypertensive urgency with blood pressure 218/115. We were consulted for medical clearance followed by management throughout patient's hospitalization. Patient's NSQUIP score revealed a risk of 4.9% for serious complications showing above average with a 3.3% average, above average cardiac complication at 0.5% with average being 0.2%, an above average risk of is 0.2% with average risk being 0.1%, and an above average need for half-way facility upon discharge at 38.2% with average being 8.4%. Patient underwent a left total hip arthroplasty completed by Dr. Diana on 12/26/21. Physical exam: Patient seen and fully evaluated at the bedside. Patient reports severe burning pain to left lower extremity. Movement and sensation remain intact. Patient describing nerve pain throughout entire left leg stating it shoots down and is turning an extra sensitive to touch. Patient has been receiving Ultram and Dilaudid and states it controls postoperative pain but is not controlling the burning sensation. Patient being started on Neurontin 100 mg 3 times daily to see if this aids in helping improve neuralgias and left lower extremity. Patient otherwise denies having any complaints. Patient's daughter at bedside, states mom has been up to chair only but has not been ambulated with walker yet. PT/OT following, patient will likely need half-way facility placement upon discharge. Morning labs reviewed. Hemoglobin stable at 9.4. Thrombocytopenia has resolved with platelet count of 161 and acute kidney injury also resolved with BUN 12.3, creatinine 0.8, and GFR of 67.2. Medically, patient stable at this time and may be discharged from medical standpoint once cleared by primary admitting orthopedic surgery team. Morning blood pressure 1 30/77 with heart rate 74. Vital signs reviewed and stable. General: Nontoxic, no distress and appears stated age. Derm: Skin warm and dry, normal coloration for ethnicity. Mild bruising/swelling left lateral hip and thigh Head: Atraumatic, normocephalic and symmetric. Eyes: EOMs intact, no lid lag, and anicteric sclera Mouth: no lip lesions, mucus membranes moist Cardiovascular: regular rate and rhythm with normal S1S2, systolic murmur, positive posterior tibial pulses bilaterally, and cap refill < 2 seconds. Lungs: Respirations even, regular, and unlabored on room air. Lungs CTA bi laterally, no rhonchi, no rales, no wheezing, and no accessory muscle usage. Abdominal: soft, nontender to palpation, no guarding, no appreciable organomegaly Ext: ROM intact. No gross muscle atrophy, no edema, no contractures Neuro: Speech clear, face symmetrical and CN II-XII grossly intact with no noted focal neuro deficits Psych: Alert and oriented to person, place, time, and situation. Appropriate and pleasant affect. Assessment and Plan of Care: Acute blood loss anemia status post left femoral neck fracture -Hemoglobin stable at 9.4. We will continue to monitor with repeat a.m. labs and transfuse as necessary for hemoglobin less than 7. Acute kidney injury, resolved Thrombocytopenia, resolved Hypertensive urgency, improved -Initial hypertensive urgency likely secondary to uncontrolled pain, blood pressure has improved with continuation of Imdur, metoprolol, and Telmisartan. Abnormal UA, positive nitrites negative for infection -Patient is negative for urinary complaints or concerns of UTI. Status post left total hip arthroplasty secondary to displaced left femoral neck fracture resulting from mechanical fall -Management per primary admitting orthopedic surgery team including DVT prophylaxis, pain management, weightbearing, and PT/OT. -Fall precautions -Currently DVT prophylaxis with Lovenox as recommended by primary admitting orthopedic surgery team. History of CAD status post stenting -Continue cardiac medication regimen with atorvastatin, isosorbide dinitrate, metoprolol, and Telmisartan. Hyperlipidemia -Continue daily medication regimen with atorvastatin. -Continue a heart healthy and carb consistent diet. Hypothyroidism -Continue daily medication regimen with levothyroxine. Type II [id number] diabetes mellitus -Hold Glucophage and Januvia in place patient on glycemic protocol with NovoLog sliding scale. Thank you for allowing us to participate in the care of this pleasant patient. Do not hesitate to contact us with questions. Someone can be reached from the [facility] hospitalist group all hours of the day at [phone] or via [employer]. Attending Note: Dennis Mckeon JTAC rendered care for this patient independently, reviewed the findings and plan as documented in the note above. I did not physically speak with or examine the patient on this date. Objective - Vital Signs Vital signs: Vital Signs Temp 98.0 F 12/30/21 08:00 Pulse 78 12/30/21 08:00 Resp 16 12/30/21 08:00 BP 173/89 12/30/21 08:00 Pulse Ox 96 12/30/21 08:00 FiO2 Intake & Output 12/29/21 12/30/21 12/30/21 18:59 06:59 18:59 Other: # Voids 2 2 # Bowel Movements 1 - Labs CBC & Chem 7: 12/30/21 07:04 12/30/21 07:04 Labs: Abnormal Lab Results - Last 24 Hours (Table) 12/29/21 12/29/21 12/29/21 Range/Units 04:20 11:23 20:53 RBC 3.19 L (4.10-5.20) X 10*6/uL Hgb 9.0 L (12.0-15.0) g/dL Hct 28.9 L (37.2-46.3) % MCHC 31.1 L (32.0-37.0) g/dL RDW 15.9 H (11.5-14.5) % Plt Count 125 L (140-440) X 10*3/uL MPV 12.8 H (9.5-12.2) fL POC Glucose (mg/dL) 134 H 133 H (70-110) mg/dL 12/30/21 Range/Units 06:02 RBC (4.10-5.20) X 10*6/uL Hgb (12.0-15.0) g/dL Hct (37.2-46.3) % MCHC (32.0-37.0) g/dL RDW (11.5-14.5) % Plt Count (140-440) X 10*3/uL MPV (9.5-12.2) fL POC Glucose (mg/dL) 134 H (70-110) mg/dL
--- NOTE | 2021-12-30 12:35 | P.DS ---
Providers Date of admission: 12/26/21 10:28 Expected date of discharge: 12/30/21 Attending physician: George Diana Consults: 12/26/21 10:04 Consult Physician Urgent Consulting Provider: Verona Torres Consult Reason/Comments: Medical management Do you want consulting provider notified?: Yes Primary care physician: Stated None Hospital Course: Date of admission: 12/26/2021 Date of discharge: 12/30/2021 Admission diagnosis: Displaced left femoral neck fracture Discharge diagnosis: Status post direct anterior left total hip arthroplasty Attending physician: Dr. Diana Surgical procedures: Direct anterior left total hip arthroplasty Brief history: Patient is a 86-year-old female who presented to [facility] on 12/26/2021 after falling and sustaining a fracture to her left hip. Patient was admitted under orthopedic care with plan for surgical intervention. Internal medicine was consulted for management. Hospital course: Details of patient's surgery can be found in operative report. Patient tolerated the procedure well and was subsequently transported to orthopedic floor. Patient's orthopeidc and medical care was provided daily. Patient had daily laboratory tests performed for evaluation of overall blood counts . Patient had daily physical therapy to include strengthening range of motion as well as education with walker ambulation. Patient was treated with Lovenox for their postoperative DVT prophylaxis during their inpatient stay. Patient was noted to have a relatively uneventful postoperative course. Patient reported satisfactory pain control with oral pain medications by postoperative day 2. Patient showed satisfactory progress with physical therapy. Patient moved steadily through the program and had no difficulty meeting the goals by postoperative day 3. Given patient's otherwise satisfactory course and having met physical therapy goals, plan is to discharge patient rehab on postoperative day 3. Discharge condition/disposition: Patient will be discharged to rehab in stable condition. Discharge medications: Instructions are given on resumption of patient's normal daily medications per primary care recommendation, in addition patient will be prescribed tramadol 50 mg, gabapentin 100 mg, Lovenox 40 mg, ferrous sulfate 325 mg, Pepcid 20 mg. Discharge instructions: 1. Wound care and infection precautions, keep incision dry and covered while showering, no lotions, creams, moisturizers. No soaking, tubs, pools, hottubs. Do not scrub over the incision. 2. Weight-bear as tolerated with walker / cane until follow-up. 3. Ice and elevate when necessary. Do not exceed 20 minutes per hour with ice pack. 4. Utilize compression sleeve until seen at first follow up appointment. 5. Visiting nursing care. 6. Home physical therapy. 7. Pain meds and anticoagulants per prescription. 8. Pain medication has potential to cause constipation. Increase oral fluid and fiber intake. Contact primary care provider if you have not had a bowel movement within 48 hours after discharge 9. No anti-inflammatory medication until discussed at first post operative visit, this including Motrin, Aleve, Mobic, Diclofenac. 10. Follow up in office at 2 weeks postop with Aravind Silva PA-C/Daniel Nunez 11. Follow up with your primary care doctor 7-10 days after discharge. 12. Contact [facility] with any questions, . Procedures: Direct anterior left total hip arthroplasty Patient Condition at Discharge: Good Plan - Discharge Summary Discharge Rx Participant: No New Discharge Prescriptions: New Ferrous Sulfate [Iron (65 MG Elemental)] 325 mg PO BID-W/MEALS tab Famotidine [Pepcid] 20 mg PO DAILY tab Gabapentin [Neurontin] 100 mg PO DAILY #30 cap traMADol HCl [Ultram] 50 mg PO Q6H PRN #28 tab PRN Reason: Pain Enoxaparin [Lovenox] 40 mg SQ DAILY #25 each Continue Nitroglycerin Sl Tabs [Nitrostat] 0.4 mg SUBLINGUAL Q5M PRN PRN Reason: Chest Pain Magnesium 250 mg PO DAILY Multivitamins, Thera [Multivitamin (formulary)] 1 tab PO DAILY Cholecalciferol [Vitamin D3 (25 Mcg = 1000 Iu)] 50 mcg PO DAILY metFORMIN HCL [Glucophage] 500 mg PO BID Metoprolol Tartrate [Lopressor] 25 mg PO BID Isosorbide Dinitrate 30 mg PO DAILY Telmisartan [Micardis] 80 mg PO DAILY Cranberry Fruit Extract [Cranberry] 500 mg PO DAILY sitaGLIPtin [Januvia] 50 mg PO DAILY Atorvastatin Calcium [Lipitor] 40 mg PO DAILY Levothyroxine Sodium [Synthroid] 75 mcg PO DAILY No Action Aspirin EC [Ecotrin Low Dose] 81 mg PO DAILY Discharge Medication List Aspirin EC [Ecotrin Low Dose] 81 mg PO DAILY 12/26/21 [History] Atorvastatin Calcium [Lipitor] 40 mg PO DAILY 12/26/21 [History] Cholecalciferol [Vitamin D3 (25 Mcg = 1000 Iu)] 50 mcg PO DAILY 12/26/21 [History] Cranberry Fruit Extract [Cranberry] 500 mg PO DAILY 12/26/21 [History] Isosorbide Dinitrate 30 mg PO DAILY 12/26/21 [History] Levothyroxine Sodium [Synthroid] 75 mcg PO DAILY 12/26/21 [History] Magnesium 250 mg PO DAILY 12/26/21 [History] Metoprolol Tartrate [Lopressor] 25 mg PO BID 12/26/21 [History] Multivitamins, Thera [Multivitamin (formulary)] 1 tab PO DAILY 12/26/21 [Hist ory] Nitroglycerin Sl Tabs [Nitrostat] 0.4 mg SUBLINGUAL Q5M PRN 12/26/21 [History] Telmisartan [Micardis] 80 mg PO DAILY 12/26/21 [History] metFORMIN HCL [Glucophage] 500 mg PO BID 12/26/21 [History] sitaGLIPtin [Januvia] 50 mg PO DAILY 12/26/21 [History] Enoxaparin [Lovenox] 40 mg SQ DAILY #25 each 12/30/21 [Rx] Famotidine [Pepcid] 20 mg PO DAILY tab 12/30/21 [Rx] Ferrous Sulfate [Iron (65 MG Elemental)] 325 mg PO BID-W/MEALS tab 12/30/21 [Rx] Gabapentin [Neurontin] 100 mg PO DAILY #30 cap 12/30/21 [Rx] traMADol HCl [Ultram] 50 mg PO Q6H PRN #28 tab 12/30/21 [Rx] Follow up Appointment(s)/Referral(s): None,Stated [Primary Care Provider] - 1-2 days Pedro Silva PAC [PHYSICIAN CEPHALOMETRIC TECHNICIAN] - 2 Weeks Activity/Diet/Wound Care/Special Instructions: Orthopedic Discharge Instructions: 1. Wound care and infection precautions, keep incision dry and covered while showering, no lotions, creams, moisturizers. No soaking, pools, hot tubs. Do not scrub over incision. 2. Weight-bear as tolerated with walker / cane until follow-up. 3. Ice and elevate when necessary. Do not exceed 20 minutes per hour with ice pack. 4. Utilize compression sleeve until seen at first follow up appointment. 5. Pain meds and anticoagulants per prescription. 6. Pain medication has potential to cause constipation. Increase oral fluid and fiber intake. Contact primary care provider if you have not had a bowel movement within 48 hours after discharge. 7. No anti-inflammatory medication until discussed at first post operative visit, this including Motrin, Aleve, Mobic, Diclofenac 8. Follow up in office at 2 weeks postop with Aravind Silva PA-C/Daniel Cunningham PA-C 9. Follow up with your primary care doctor 7-10 days after discharge. 10. Contact [facility] with any questions, . Discharge Disposition: HOME WITH HOME HEALTH SERVICES
== END 2021-12-30 15:56 | DRG 522 ==
LOC: EC 08:53 → 4SSUR 10:28
PROVIDERS: ADMIT Orthopaedic Surgery; ATTEND Orthopaedic Surgery
PROC: 0SRB04A Replacement of Left Hip Joint with Ceramic on Polyethylene Synthetic Substitute, Uncemented, Open Approach (ICD-10-PCS; principal; 2021-12-26 07:30)
DX: S72.002A Fracture of unspecified part of neck of left femur, initial encounter for closed fracture (principal); N17.9 Acute kidney failure, unspecified; D62 Acute posthemorrhagic anemia; D69.6 Thrombocytopenia, unspecified; E11.9 Type 2 diabetes mellitus without complications; Z20.822 Contact with and (suspected) exposure to COVID-19; I16.0 Hypertensive urgency; I10 Essential (primary) hypertension; E87.70 Fluid overload, unspecified; E87.6 Hypokalemia; E89.0 Postprocedural hypothyroidism; E78.5 Hyperlipidemia, unspecified; I25.10 Atherosclerotic heart disease of native coronary artery without angina pectoris; I45.10 Unspecified right bundle-branch block; I25.2 Old myocardial infarction; Z79.82 Long term (current) use of aspirin; Z79.890 Hormone replacement therapy; Z79.84 Long term (current) use of oral hypoglycemic drugs; Z79.899 Other long term (current) drug therapy; Z96.652 Presence of left artificial knee joint; Z95.5 Presence of coronary angioplasty implant and graft; Z85.3 Personal history of malignant neoplasm of breast; Z92.3 Personal history of irradiation; W01.0XXA Fall on same level from slipping, tripping and stumbling without subsequent striking against object, initial encounter; Y92.59 Other trade areas as the place of occurrence of the external cause
CPT/HCPCS: 27268; 71045; 73501; 73502; 80048; 80053; 81001; 85025; 85027; 85610; 85730; 86850; 86900; 86901; 87635; 88305; 88311; 93005; 94760; 96361; 96374; 96375; 99285